=== PATIENT | male | born 1970 | race Two or more races ===

== ENCOUNTER 2023-09-15 18:02 | Emergency (ER) | payer OTHER ==
[~2023-09-15] VITALS: Ht 175.3 cm; Wt 90.7 kg
[2023-09-15] MEDS ORDERED: RELAFEN DS1000 MG PO (22:26)
[2023-09-15] MEDS ORDERED: DUI500 PO (22:26)
== END 2023-09-15 22:37 | disposition home or self-care (01) ==
LOC: ER 18:02
DX: S00.83XA Contusion of other part of head, initial encounter (principal); S39.92XA Unspecified injury of lower back, initial encounter; V92.09XA Drowning and submersion due to fall off unspecified watercraft, initial encounter; Y93.89 Activity, other specified; Y92.832 Beach as the place of occurrence of the external cause; Y99.9 Unspecified external cause status